=== PATIENT | male | born 1975 | race Caucasian/White ===

== ENCOUNTER 2022-06-07 08:57 | Emergency (ER) | payer MEDICAID ==
[~2022-06-07] VITALS: Ht 193 cm; Wt 100.0 kg
[2022-06-07 10:58] LABS: MEAN PLATELET VOLUME 7.9 FL (7.4-10.4); RED BLOOD COUNT 4.81 X10'6 (4.70-6.10)
[2022-06-07 11:00] LABS: BASOPHILS # (AUTO) 0.1 X10'3 (0-0.2); BASOPHILS % (AUTO) 0.8 % (0-1); EOSINOPHILS % (AUTO) 0.4 % (0-6); HEMATOCRIT 40.9 % (42.0-52.0); LYMPHOCYTES # (AUTO) 1.9 X10'3 (1.1-4.8); LYMPHOCYTES % (AUTO) 24.5 % (21-51); MEAN CORPUSCULAR HGB CONC 34.2 g/dL (33.0-36.5); MEAN CORPUSCULAR VOLUME 84.9 FL (78-98); MONOCYTES % (AUTO) 13.5 % (2-12); NEUTROPHILS # (AUTO) 4.7 X10'3 (1.8-7.7); NEUTROPHILS % (AUTO) 60.8 % (42-75); PLATELET COUNT 330 X10'3 (140-440); RED CELL DISTRIBUTION WIDTH 14.1 % (11.5-14.5); WHITE BLOOD COUNT 7.7 X10'3 (4.5-11.0)
--- NOTE | 2022-06-07 11:00 | NUR ---
Received patient to OF bed #25. Pt ambulated independently with PCT. Pt presents agitated, but cooperative. Pt's girlfriend was temporarily at bedside, as pt later kicked her out. Pt's GF is the one who brought him [facility] from group home. Pt stateshe was in group home for "disturbing the peace." Pt was was making threatening statements towards GF. She feels if she leaves she will not see him again. Pt states "I don't know why I am here." Pt denies A/VH. Pt refers to his father and points to the ceiling. Writers asked if his father has . Pt states "My dad is God, Colby Bruce." Pt presents with an animated affect and rapid speech. Pt at first said he doesn't take any medication, but then said he takes Seroquel 400 mg. Pt is oppositional with requests, but is cooperative. Pt reports he has a therapist at [facility].
[2022-06-07 11:12] LABS: ALANINE AMINOTRANSFERASE 32 U/L (12-78); ALBUMIN 4.6 G/DL (3.4-5.0); ALBUMIN/GLOBULIN RATIO 1.4 (1.1-1.5); ALKALINE PHOSPHATASE 57 IU/L (46-116); ANION GAP 15 (8-16); ASPARTATE AMINO TRANSFERASE 46 U/L (10-37); BILIRUBIN,TOTAL 0.6 MG/DL (0.1-1.0); BLOOD UREA NITROGEN 25 MG/DL (7-18); BUN/CREATININE RATIO 28.1 (5.4-32.0); CALCIUM 9.1 MG/DL (8.5-10.1); CHLORIDE 101 MMOL/L (99-107); CREATININE 0.89 MG/DL (0.60-1.10); GLUCOSE 94 MG/DL (70-104); POTASSIUM 3.6 MMOL/L (3.5-5.1); SODIUM 140 MMOL/L (135-145); TOTAL CARBON DIOXIDE 24.1 MMOL/L (24-32); TOTAL PROTEIN 7.9 G/DL (6.4-8.2); eGFR > 90 ML/MIN
--- NOTE | 2022-06-07 11:35 | NUR ---
Pt sitting up in bed coloring talking himself and "his father."
--- NOTE | 2022-06-07 12:19 | NUR ---
Pt resting comfortably, rr even and unlabored.
--- NOTE | 2022-06-07 13:41 | NUR ---
I agree with assessment performed by Amanda RICE
--- NOTE | 2022-06-07 13:52 | NUR ---
Pt woke and ate his lunch. Pt is pleasant at greeting and presents with a brigh affect. 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 Pt was able to give a urine sample. Noted pt's gait impaired, he was bent over and limping on his way to the bathroom. Pt states "it's my Parkinson's." When pt came over from main ED he was walking erect without a limp. Pt states he takes "magnesium" for this.
[2022-06-07 14:09] LABS: CLARITY,URINE SLIGHTLY CLOUDY (Clear); COLOR,URINE YELLOW (Yellow); GLUCOSE, URINE NEGATIVE (Neg); KETONES,URINE >=80 mg/dl (Neg); LEUKOCYTE ESTERASE ,URINE NEGATIVE (Neg); NITRITES, URINE NEGATIVE (Neg); OCCULT BLOOD,URINE MODERATE (Neg); PH,URINE 5.5 (4.8-8.0); PROTEIN,URINE NEGATIVE (Neg); UROBILINOGEN,URINE 0.2 E.U/dL (0.2-1.0)
[2022-06-07 14:10] LABS: UA COLLECTION TYPE VOIDED
[2022-06-07 14:19] LABS: BACTERIA,URINE FEW /HPF (Neg); FINE GRANULAR CAST 0-3 /LPF (NEGATIVE); MUCUS STRANDS MANY /LPF (Neg); RBC,URINE 50-100 /HPF (0-2); SQUAMOUS EPITHELIAL CELL,UR FEW /LPF (FEW)
--- NOTE | 2022-06-07 14:25 | NUR ---
Pt standing next to bed making bizarre movements. Pt continues with rapid speech and animated affect. Pt is dramatic when speaking to him. Pt talks with his hands and widens his eyes. Pt ate 100% of his lunch.
[2022-06-07 14:29] LABS: URINE AMPHETAMINE SCREEN NEGATIVE (Neg); URINE BARBITUATE SCREEN NEGATIVE (Neg); URINE BENZODIAZEPINES SCREEN NEGATIVE (Neg); URINE CANNABINOID SCREEN POSITIVE (Neg); URINE COCAINE SCREEN NEGATIVE (Neg); URINE METHADONE SCREEN NEGATIVE (Neg); URINE OPIATE SCREEN NEGATIVE (Neg); URINE PHENCYCLIDINE SCREEN NEGATIVE (Neg)
--- NOTE | 2022-06-07 15:00 | NUR ---
Pt's girlfriend Hailey Marycruz at bedside, conversation is appropriate.
[2022-06-07 16:15] LABS: ETHANOL < 0.010 GM/DL (0.0-0.010)
--- NOTE | 2022-06-07 16:20 | NUR ---
MELQUIADES [facility]LE[facility] - PT'S GIRLFRIEND [phone]. VERBAL AUTHORIZATION FROM PATIENT.
--- NOTE | 2022-06-07 17:17 | NUR ---
Pt awake lying on his bed with covers pulled over his head. Respirations even and unlabored.
--- NOTE | 2022-06-07 17:30 | NUR ---
Requested DINORAH Sabillon to review pt's U/A. Confirmed UTI. Pt placed on Macrobid 100 mg BID x 7 days.
[2022-06-07] MEDS: lactobacillus rhamnosus 10,000 MMU CELLS/CAPSULE PO SCH ×2 (18:02→20:00)
[2022-06-07] MEDS: nitrofuran monohydrate/nitrofuran macrocrysal 100 MG (MacroBID) capsule PO SCH ×2 (18:03→20:00)
--- NOTE | 2022-06-07 18:29 | NUR ---
Pt sitting in bed quietly eating dinner.
[2022-06-07] MEDS ORDERED: CHOL-4 PO (19:16)
[2022-06-07] MEDS ORDERED: AMPH10TA2 PO (19:19)
[2022-06-07] MEDS ORDERED: LAMO100T PO (19:22)
[2022-06-07] MEDS ORDERED: PROP10TA10 PO (19:23)
[2022-06-07] MEDS ORDERED: MAGN500C4 PO (19:25)
[2022-06-07] MEDS ORDERED: QUET400T PO (19:26)
[2022-06-07] MEDS ORDERED: BUS15T PO (19:28)
--- NOTE | 2022-06-07 19:59 | NUR ---
Recieved pc from [facility] for Nurse to Nurse, they will speak with thier provider and let us know if he is accepted.
--- NOTE | 2022-06-07 20:33 | NUR ---
Received pc from [facility] pt has been accepted by Dr Mireya Mcfadden @2019. Arrangements will be made for transportation tommorow with [facility] office pending discharges.
--- NOTE | 2022-06-07 20:37 | NUR ---
pt is laying on his right side sleeping rr even and unlabored.
--- NOTE | 2022-06-07 22:15 | NUR ---
pt is laying on his right side appears to be asleep. RR even and unlabored no s/s distress.
--- NOTE | 2022-06-07 22:57 | NUR ---
Pt is in bed awake sitting quietly
[2022-06-07] MEDS ORDERED: quetiapine 100mg tablet PO ONE (23:35)
--- NOTE | 2022-06-07 23:36 | NUR ---
pt awake having trouble falling back to sleep. Seroquel given. Pt reports its been 2 days since he had seroquel last.
--- NOTE | 2022-06-08 01:32 | NUR ---
pt laying on his back rr 16
--- NOTE | 2022-06-08 03:29 | NUR ---
pt up to use the bathroom and returned to bed and went back to sleep
[2022-06-08 05:40] VITALS: BP 140/94
--- NOTE | 2022-06-08 06:31 | NUR ---
Patient moving around in be and is now laying on left side. Patient is quiet. No distress observed. Continue to monitor.
[2022-06-08] MEDS ORDERED: cholecalciferol (vitamin D3) 1,000 unit (25mcg) tablet PO SCH (08:00)
[2022-06-08] MEDS ORDERED: propranolol 10mg tablet PO SCH (08:00)
[2022-06-08] MEDS ORDERED: magnesium oxide 400mg tablet PO SCH (08:00)
--- NOTE | 2022-06-08 08:11 | NUR ---
Patient refused his meal. Patient appears angry. Continue to monitor.
[2022-06-08] MEDS: nitrofuran monohydrate/nitrofuran macrocrysal 100 MG (MacroBID) capsule PO SCH (08:20)
[2022-06-08] MEDS: lactobacillus rhamnosus 10,000 MMU CELLS/CAPSULE PO SCH (08:22)
--- NOTE | 2022-06-08 09:10 | NUR ---
RN offered patient's breakfast again but patient refused. Patient did ask for his coffee. RN reheated his coffee and gave patient sugar and cream. Patient apologized for being rude. Continue to monitor.
--- NOTE | 2022-06-08 09:57 | NUR ---
Patient appears to be responding to internal stimuli. Patient is agitated. Continue to monitor.
[2022-06-08] MEDS ORDERED: quetiapine 100mg tablet PO SCH (21:00)
== END 2022-06-08 10:27 ==
LOC: ER 08:58
DX: F99 Mental disorder, not otherwise specified (principal); Z20.822 Contact with and (suspected) exposure to COVID-19; F31.9 Bipolar disorder, unspecified; Z79.899 Other long term (current) drug therapy
CPT/HCPCS: 36415; 80053; 80305; 80320; 81001; 84443; 85025; 87811; 99285